=== PATIENT | male | born 1960 | race African-American/Black ===

== ENCOUNTER 2019-03-16 08:58 | Emergency (ER) | payer OTHER ==
[~2019-03-16 08:58] MED LIST: FLUO20CA19 PO; GLIP10TA13 PO; HYDR-2761 PO; LISI1TAB19 PO; ONDA4TAB10 SL; SAXA5TAB PO; SIMV80TA17 PO
[2019-03-16 10:40] LABS: BASO # 0.1 x10^3/uL (0.0-0.2); BASO % 1 % (0-3); EOS # 0.3 x10^3/uL (0.0-0.7); EOS % 4 % (0-3); HEMATOCRIT 49.5 % (39.0-53.0); HEMOGLOBIN 17.1 g/dL (13.0-17.5); LYMPH # 2.2 x10^3/uL (1.0-4.8); LYMPH % 26 % (24-48); MEAN CORPUSCULAR HEMOGLOBIN 31 pg (25-35); MEAN CORPUSCULAR HGB CONC 35 g/dL (31-37); MEAN CORPUSCULAR VOLUME 89 fL (79-100); MONO # 0.8 x10^3/uL (0.0-1.1); MONO % 9 % (0-9); NEUT # 5.2 x10^3/uL (1.8-7.7); NEUT % 60 % (31-73); PLATELET COUNT 181 x10^3/uL (140-400); RED BLOOD COUNT 5.58 x10^6/uL (4.30-5.70); RED CELL DISTRIBUTION WIDTH 13.1 % (11.5-14.5); WHITE BLOOD COUNT 8.7 x10^3/uL (4.0-11.0)
--- NOTE | 2019-03-16 10:47 | PHYS DOC ---
Past Medical History Past Medical History: Diabetes-Type II, High Cholesterol, Hypertension, Other Additional Past Medical Histor: G6PD DEFICIENCY (HUSSEIN COLLINS APRN) Past Surgical History: No Surgical History (HUSSEIN COLLINS APRN) Alcohol Use: None Drug Use: None (HUSSEIN COLLINS APRN) Adult General Chief Complaint Chief Complaint: ABDOMINAL PAIN HPI HPI Patient is a 58 year old male who presents with abdominal pain, nausea, vomiting this been ongoing for days. Patient rates pain 6 out of 10 severity sharp. The patient is not a bowel movement since Friday. The patient does have a history of a bowel obstruction. 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 He states this was several years ago. (HUSSEIN COLLINS APRN) Review of Systems Review of Systems Constitutional: Denies fever or chills [] Eyes: Denies change in visual acuity, redness, or eye pain [] HENT: Denies nasal congestion or sore throat [] Respiratory: Denies cough or shortness of breath [] Cardiovascular: No additional information not addressed in HPI [] GI: Reports abdominal pain, nausea, vomiting, Denies bloody stools or diarrhea [] : Denies dysuria or hematuria [] Musculoskeletal: Denies back pain or joint pain [] Integument: Denies rash or skin lesions [] Neurologic: Denies headache, focal weakness or sensory changes [] Endocrine: Denies polyuria or polydipsia [] Complete systems were reviewed and found to be within normal limits, except as documented in this note. (HUSSEIN COLLINS APRN) Current Medications Current Medications Current Medications Medications (Trade) Dose Ordered Sig/Travis Start Time Stop Time Status Last Admin Dose Admin Fentanyl Citrate (Fentanyl 2ml Vial) 50 mcg 1X ONCE 03/16/19 11:00 03/16/19 11:01 DC Info (CONTRAST GIVEN -- Rx MONITORING) 1 each PRN DAILY PRN 03/16/19 11:00 03/16/19 13:07 DC Iohexol (Omnipaque 300 Mg/ml) 75 ml 1X ONCE 03/16/19 11:00 03/16/19 11:01 DC 03/16/19 11:11 75 ML Ondansetron HCl (Zofran) 4 mg 1X ONCE 03/16/19 11:00 03/16/19 11:01 DC 03/16/19 11:10 4 MG Sodium Chloride 1,000 ml @ 1,000 mls/hr 1X ONCE 03/16/19 11:00 03/16/19 11:59 DC 03/16/19 11:10 1,000 MLS/HR (JAMILAH OH MD) Allergies Allergies Allergies Coded Allergies Type Severity Reaction Last Updated Verified aspirin Allergy Severe Anaphylaxis 03/16/19 Yes (JAMILAH OH MD) Physical Exam Physical Exam Constitutional: Well developed, well nourished, no acute distress, non-toxic appearance. [] HENT: Normocephalic, atraumatic, bilateral external ears normal, oropharynx moist, no oral exudates, nose normal. [] Eyes: PERRLA, EOMI, conjunctiva normal, no discharge. [] Neck: Normal range of motion, no tenderness, supple, no stridor. [] Cardiovascular:Heart rate regular rhythm, no murmur [] Lungs & Thorax: Bilateral breath sounds clear to auscultation [] Abdomen: Hypoactive bowel sounds, soft, diffuse tenderness with guarding in the LLQ, no masses, no pulsatile masses. [] Skin: Warm, dry, no erythema, no rash. [] Neurologic: Alert and oriented X 3, normal motor function, normal sensory function, no focal deficits noted. [] Psychologic: Affect normal, judgement normal, mood normal. [] (HUSSEIN COLLINS APRN) Current Patient Data Vital Signs Vital Signs Date Time Temp Pulse Resp B/P (MAP) Pulse Ox O2 Delivery O2 Flow Rate FiO2 03/16/19 12:30 72 12 115/72 (86) 97 Room Air 03/16/19 10:09 98.2 98.2 (JAMILAH OH MD) Lab Values Laboratory Tests Test 03/16/19 10:31 03/16/19 11:44 White Blood Count 8.7 x10^3/uL (4.0-11.0) Red Blood Count 5.58 x10^6/uL (4.30-5.70) Hemoglobin 17.1 g/dL (13.0-17.5) Hematocrit 49.5 % (39.0-53.0) Mean Corpuscular Volume 89 fL (79-100) Mean Corpuscular Hemoglobin 31 pg (25-35) Mean Corpuscular Hemoglobin Concent 35 g/dL (31-37) Red Cell Distribution Width 13.1 % (11.5-14.5) Platelet Count 181 x10^3/uL (140-400) Neutrophils (%) (Auto) 60 % (31-73) Lymphocytes (%) (Auto) 26 % (24-48) Monocytes (%) (Auto) 9 % (0-9) Eosinophils (%) (Auto) 4 % (0-3) H Basophils (%) (Auto) 1 % (0-3) Neutrophils # (Auto) 5.2 x10^3/uL (1.8-7.7) Lymphocytes # (Auto) 2.2 x10^3/uL (1.0-4.8) Monocytes # (Auto) 0.8 x10^3/uL (0.0-1.1) Eosinophils # (Auto) 0.3 x10^3/uL (0.0-0.7) Basophils # (Auto) 0.1 x10^3/uL (0.0-0.2) Prothrombin Time 13.7 SEC (11.7-14.0) Prothrombin Time INR 1.1 (0.8-1.1) Activated Partial Thromboplast Time 27 SEC (24-38) Sodium Level 134 mmol/L (136-145) L Potassium Level 3.7 mmol/L (3.5-5.1) Chloride Level 96 mmol/L (98-107) L Carbon Dioxide Level 26 mmol/L (21-32) Anion Gap 12 (6-14) Blood Urea Nitrogen 13 mg/dL (8-26) Creatinine 1.1 mg/dL (0.7-1.3) Estimated GFR (Cockcroft-Gault) 82.9 BUN/Creatinine Ratio 12 (6-20) Glucose Level 240 mg/dL (70-99) H Lactic Acid Level 1.6 mmol/L (0.4-2.0) Calcium Level 9.2 mg/dL (8.5-10.1) Total Bilirubin 0.8 mg/dL (0.2-1.0) Aspartate Amino Transferase (AST) 42 U/L (15-37) H Alanine Aminotransferase (ALT) 72 U/L (16-63) H Alkaline Phosphatase 71 U/L (46-116) Total Protein 7.6 g/dL (6.4-8.2) Albumin 4.1 g/dL (3.4-5.0) Albumin/Globulin Ratio 1.2 (1.0-1.7) Lipase 110 U/L (73-393) Urine Collection Type Unknown Urine Color Yellow Urine Clarity Clear Urine pH 5.0 Urine Specific [place] >=1.030 Urine Protein Negative mg/dL (NEG-TRACE) Urine Glucose (UA) 500 mg/dL (NEG) Urine Ketones (Stick) 15 mg/dL (NEG) Urine Blood Negative (NEG) Urine Nitrite Negative (NEG) Urine Bilirubin Negative (NEG) Urine Urobilinogen Dipstick 1.0 mg/dL (0.2 mg/dL) Urine Leukocyte Esterase Negative (NEG) Urine RBC Occ /HPF (0-2) Urine WBC Occ /HPF (0-4) Urine Squamous Epithelial Cells Few /LPF Urine Bacteria 0 /HPF (0-FEW) Urine Mucus Slight /LPF Laboratory Tests 03/16/19 10:31 Laboratory Tests 03/16/19 10:31 (JAMILAH OH MD) Lab Values Laboratory Tests Test 03/16/19 10:31 03/16/19 11:44 White Blood Count 8.7 x10^3/uL (4.0-11.0) Red Blood Count 5.58 x10^6/uL (4.30-5.70) Hemoglobin 17.1 g/dL (13.0-17.5) Hematocrit 49.5 % (39.0-53.0) Mean Corpuscular Volume 89 fL (79-100) Mean Corpuscular Hemoglobin 31 pg (25-35) Mean Corpuscular Hemoglobin Concent 35 g/dL (31-37) Red Cell Distribution Width 13.1 % (11.5-14.5) Platelet Count 181 x10^3/uL (140-400) Neutrophils (%) (Auto) 60 % (31-73) Lymphocytes (%) (Auto) 26 % (24-48) Monocytes (%) (Auto) 9 % (0-9) Eosinophils (%) (Auto) 4 % (0-3) H Basophils (%) (Auto) 1 % (0-3) Neutrophils # (Auto) 5.2 x10^3/uL (1.8-7.7) Lymphocytes # (Auto) 2.2 x10^3/uL (1.0-4.8) Monocytes # (Auto) 0.8 x10^3/uL (0.0-1.1) Eosinophils # (Auto) 0.3 x10^3/uL (0.0-0.7) Basophils # (Auto) 0.1 x10^3/uL (0.0-0.2) Prothrombin Time 13.7 SEC (11.7-14.0) Prothrombin Time INR 1.1 (0.8-1.1) Activated Partial Thromboplast Time 27 SEC (24-38) Sodium Level 134 mmol/L (136-145) L Potassium Level 3.7 mmol/L (3.5-5.1) Chloride Level 96 mmol/L (98-107) L Carbon Dioxide Level 26 mmol/L (21-32) Anion Gap 12 (6-14) Blood Urea Nitrogen 13 mg/dL (8-26) Creatinine 1.1 mg/dL (0.7-1.3) Estimated GFR (Cockcroft-Gault) 82.9 BUN/Creatinine Ratio 12 (6-20) Glucose Level 240 mg/dL (70-99) H Lactic Acid Level 1.6 mmol/L (0.4-2.0) Calcium Level 9.2 mg/dL (8.5-10.1) Total Bilirubin 0.8 mg/dL (0.2-1.0) Aspartate Amino Transferase (AST) 42 U/L (15-37) H Alanine Aminotransferase (ALT) 72 U/L (16-63) H Alkaline Phosphatase 71 U/L (46-116) Total Protein 7.6 g/dL (6.4-8.2) Albumin 4.1 g/dL (3.4-5.0) Albumin/Globulin Ratio 1.2 (1.0-1.7) Lipase 110 U/L (73-393) Urine Collection Type Unknown Urine Color Yellow Urine Clarity Clear Urine pH 5.0 Urine Specific [place] >=1.030 Urine Protein Negative mg/dL (NEG-TRACE) Urine Glucose (UA) 500 mg/dL (NEG) Urine Ketones (Stick) 15 mg/dL (NEG) Urine Blood Negative (NEG) Urine Nitrite Negative (NEG) Urine Bilirubin Negative (NEG) Urine Urobilinogen Dipstick 1.0 mg/dL (0.2 mg/dL) Urine Leukocyte Esterase Negative (NEG) Urine RBC Occ /HPF (0-2) Urine WBC Occ /HPF (0-4) Urine Squamous Epithelial Cells Few /LPF Urine Bacteria 0 /HPF (0-FEW) Urine Mucus Slight /LPF Laboratory Tests 03/16/19 10:31 Laboratory Tests 03/16/19 10:31 (HUSSEIN COLLINS APRN) EKG EKG [] (HUSSEIN COLLINS APRN) Radiology/Procedures Radiology/Procedures [][facility] [address] [place] [address] IMAGING REPORT Signed PATIENT: LYNDSEY AMBROCIO ACCOUNT: [id number] : 1960 LOCATION: ER AGE: 58 SEX: M EXAM STATUS: REG ER ORD. PHYSICIAN: HUSSEIN COLLINS APRN REASON: LLQ abdominal pain PROCEDURE: CT ABD PELV W/ IV CONTRST ONLY CT ABD PELV W/ IV CONTRST ONLY Indication: Left lower quadrant abdominal pain for 4 days. History of right renal tumor with resection. Exposure: One or more of the following individualized dose reduction techniques were utilized for this examination: 1. Automated exposure control 2. Adjustment of the mA and/or kV according to patient size 3. Use of iterative reconstruction technique. Technique: Intravenous contrast was given. No oral contrast per request. Comparison: 01/20/2016. FINDINGS: Minimal gynecomastia, partially seen. Lung bases appear clear. Liver again appears hypodense compatible with steatosis. No focal lesion. Spleen unremarkable. Pancreas appears unremarkable. No evidence of adrenal mass. Kidneys demonstrate symmetric enhancement. Previously seen mass at the lower pole the right kidney has been resected. Mild volume loss at the lower pole presumably due to resection. There is a small area of hypoattenuation adjacent to the inferior margin, coronal series 4, image 39, may be postsurgical but a small area of recurrent tumor is difficult to exclude. This measures 12 mm. Therefore, recommend further workup, such as with MRI or short-term follow-up multiphase CT scan. No evidence of hydronephrosis. No calcified gallstone. Aorta is mildly calcified, no evidence of aneurysm. No evidence of significant pathologic lymph node enlargement. Small hiatal hernia. No significant small bowel distention. No evidence of acute colitis. The appendix appears normal. No evidence of pneumoperitoneum or ascites. Prostate gland is mildly enlarged. The prostate indents the posteroinferior urinary bladder and these structures are difficult to separate. Vertebral body height and alignment are intact. Mild degenerative changes at the hips, more so on the right, are again seen. No evidence of aggressive bone destruction. Degenerative changes at the sacroiliac joints are again seen. Focal area of ill-defined lucency at the posterior right iliac bone is again seen, and stable, likely demineralization or old biopsy site. IMPRESSION: 1. Resection of previously seen inferior pole right renal mass. There is a small low-density focus at the residual lower pole, may be related to the surgery, but it is not possible to exclude some recurrent tumor. Therefore, recommend follow-up with outpatient MRI or multiphase CT of the kidneys 2. Prostatomegaly. 3. No evidence of acute intra-abdominal process. 4. Findings and recommendations were discussed with nurse Savage in the emergency room by telephone at 11:50 AM on 03/16/2019. Electronically signed by: Hussein Weiss MD (03/16/2019 11:51 AM) [id number] DICTATED and SIGNED BY: HUSSEIN WEISS MD DATE: 03/16/19 1151 (HUSSEIN COLLINS APRN) Course & Med Decision Making Course & Med Decision Making Pertinent Labs and Imaging studies reviewed. (See chart for details) Will get CT, Labs, UA, and give supportive care. Labs are unremarkable. CT is unremarkable for acute changes. Area of concern with cancer history will have follow up for outpatient care. Will put patient on magnesium citrate and miralax for constipation. (HUSSEIN COLLINS APRN) Course & Med Decision Making Staff Physician Addendum: I was working in the ER during the course of this patient's visit. I was available for consultation as needed, but I was not directly involved in the care of this patient. (JAMILAH OH MD) Dragon Disclaimer Dragon Disclaimer This electronic medical record was generated, in whole or in part, using a voice recognition dictation system. (HUSSEIN COLLINS APRN) Departure Departure Impression: Primary Impression: Abdominal pain Disposition: HOME, SELF-CARE Condition: STABLE Referrals: UNKNOWN PCP NAME (PCP) Patient Instructions: Abdominal Pain (Nonspecific) Additional Instructions: Thank you for visiting [facility]. We appreciate you trusting us with your care. If any additional problems come up don't hesitate to return to visit us. Please follow up with your primary care provider so they can plan additional care if needed and know about the problem that you had. If symptoms worsen come back to the Emergency Department. Any concerning symptoms that start such as chest pain, shortness of air, weakness or numbness on one side of the body, running high fevers or any other concerning symptoms return to the ER. Please follow-up your primary care regarding the abnormality that we talked about in your CT scan. Scripts Ondansetron (ONDANSETRON ODT) 4 Mg Tab.rapdis 1 TAB PO PRN Q6-8HRS PRN for NAUSEA, #16 TAB Prov: HUSSEIN COLLINS APRN 03/16/19 Magnesium Citrate (MAGNESIUM CITRATE) 296 Ml Solution 296 ML PO ONCE, #296 ML Prov: HUSSEIN COLLINS APRN 03/16/19 Polyethylene Glycol 3350 (MIRALAX) 17 Gm Powd.pack 1 PACKET PO DAILY for constipation, #30 PACKET 0 Refills dissolve in water Prov: HUSSEIN COLLINS APRN 03/16/19 HUSSEIN COLLINS APRN Mar 16, 2019 10:47 JAMILAH OH MD Mar 17, 2019 07:42
[2019-03-16 10:53] LABS: PROTHROMBIN TIME PATIENT 13.7 SEC (11.7-14.0)
[2019-03-16] MEDS ORDERED: ONDANSETRON PF 4 MG/2 ML VIAL. IV ONE (11:00)
[2019-03-16] MEDS ORDERED: IOHEXOL 300 MG/ML 100ML VIAL. IV ONE (11:00)
[2019-03-16] MEDS ORDERED: fentaNYL PF VIAL 100 MCG/2 ML VIAL IV ONE (11:00)
[2019-03-16] MEDS ORDERED: IV NORMAL SALINE 1000ML BAG 1,000 ML IV ONE (11:00)
[2019-03-16] MEDS ORDERED: CONTRAST GIVEN. MC PRN (11:00)
[2019-03-16 11:03] LABS: ALBUMIN 4.1 g/dL (3.4-5.0); ALBUMIN/GLOBULIN RATIO 1.2 (1.0-1.7); CALCIUM 9.2 mg/dL (8.5-10.1); CREATININE 1.1 mg/dL (0.7-1.3); GFR 82.9; POTASSIUM 3.7 mmol/L (3.5-5.1); TOTAL BILIRUBIN 0.8 mg/dL (0.2-1.0); TOTAL PROTEIN 7.6 g/dL (6.4-8.2)
--- NOTE | 2019-03-16 11:54 | RAD ---
CT ABD PELV W/ IV CONTRST ONLY Indication: Left lower quadrant abdominal pain for 4 days. History of right renal tumor with resection. Exposure: One or more of the following individualized dose reduction techniques were utilized for this examination: 1. Automated exposure control 2. Adjustment of the mA and/or kV according to patient size 3. Use of iterative reconstruction technique. Technique: Intravenous contrast was given. No oral contrast per request. Comparison: 01/20/2016. FINDINGS: Minimal gynecomastia, partially seen. Lung bases appear clear. Liver again appears hypodense compatible with steatosis. No focal lesion. Spleen unremarkable. Pancreas appears unremarkable. No evidence of adrenal mass. Kidneys demonstrate symmetric enhancement. Previously seen mass at the lower pole the right kidney has been resected. Mild volume loss at the lower pole presumably due to resection. There is a small area of hypoattenuation adjacent to the inferior margin, coronal series 4, image 39, may be postsurgical but a small area of recurrent tumor is difficult to exclude. This measures 12 mm. Therefore, recommend further workup, such as with MRI or short-term follow-up multiphase CT scan. No evidence of hydronephrosis. No calcified gallstone. Aorta is mildly calcified, no evidence of aneurysm. No evidence of significant pathologic lymph node enlargement. Small hiatal hernia. No significant small bowel distention. No evidence of acute colitis. The appendix appears normal. No evidence of pneumoperitoneum or ascites. Prostate gland is mildly enlarged. The prostate indents the posteroinferior urinary bladder and these structures are difficult to separate. Vertebral body height and alignment are intact. Mild degenerative changes at the hips, more so on the right, are again seen. No evidence of aggressive bone destruction. Degenerative changes at the sacroiliac joints are again seen. Focal area of ill-defined lucency at the posterior right iliac bone is again seen, and stable, likely demineralization or old biopsy site. IMPRESSION: 1. Resection of previously seen inferior pole right renal mass. There is a small low-density focus at the residual lower pole, may be related to the surgery, but it is not possible to exclude some recurrent tumor. Therefore, recommend follow-up with outpatient MRI or multiphase CT of the kidneys 2. Prostatomegaly. 3. No evidence of acute intra-abdominal process. 4. Findings and recommendations were discussed with nurse Savage in the emergency room by telephone at 11:50 AM on 03/16/2019. Electronically signed by: Hussein Weiss MD (03/16/2019 11:51 AM) [id number]
[2019-03-16 12:05] LABS: BILIRUBIN,URINE NEGATIVE (NEG); CLARITY,URINE CLEAR; COLOR,URINE YELLOW; NITRITE,URINE NEGATIVE (NEG); PROTEIN,URINE NEGATIVE (NEG-TRACE)
[2019-03-16 12:16] LABS: SQUAMOUS EPITHELIAL CELL,UR FEW /LPF
[2019-03-16 12:17] LABS: BACTERIA,URINE 0 /HPF (0-FEW); RBC,URINE OCC /HPF (0-2); WBC,URINE OCC /HPF (0-4)
[2019-03-16 12:30] VITALS: BP 115/72
[2019-03-16] MEDS ORDERED: MAGN296S68 PO (12:45)
[2019-03-16] MEDS ORDERED: POLY17PO29 PO (12:45)
[2019-03-16] MEDS ORDERED: ONDA4TAB12 PO (12:50)
== END 2019-03-16 13:07 | disposition home or self-care (01) ==
LOC: ER 08:58
DX: R10.32 Left lower quadrant pain (principal); R10.84 Generalized abdominal pain; R11.2 Nausea with vomiting, unspecified; E78.00 Pure hypercholesterolemia, unspecified; E11.9 Type 2 diabetes mellitus without complications; I10 Essential (primary) hypertension; Z88.6 Allergy status to analgesic agent
CPT/HCPCS: 36415; 74177; 80053; 81001; 83605; 83690; 85025; 85610; 85730; 96361; 96374; 99285; J2405; J7030; Q9967

== ENCOUNTER 2021-02-03 17:10 | Emergency (ER) | payer OTHER ==
[~2021-02-03] VITALS: Ht 167.6 cm; Wt 97.0 kg
[~2021-02-03 17:10] MED LIST changes: -FLUO20CA19 PO; +FLUO20CA22 PO; -LISI1TAB19 PO; +LISI1TAB37 PO; +MAGN296S68 PO; +ONDA4TAB12 PO; +POLY17PO29 PO
[2021-02-03] MEDS ORDERED: DEXAMETHASONE SOD PHOS 20 MG/5 ML VIAL. IV ONE (19:00)
[2021-02-03] MEDS ORDERED: IV NORMAL SALINE 1000ML BAG 1,000 ML IV SCH (19:00)
[2021-02-03] MEDS ORDERED: PROCHLORPERAZINE 10 MG/2 ML VIAL. IV ONE (19:00)
[2021-02-03] MEDS ORDERED: ACETAMINOPHEN 325 MG TABLET. PO ONE (19:00)
[2021-02-03 19:13] LABS: BILIRUBIN,URINE NEGATIVE (NEG); CLARITY,URINE CLEAR; COLOR,URINE YELLOW; NITRITE,URINE NEGATIVE (NEG); PH,URINE 7.5 (<5.0-8.0); PROTEIN,URINE NEGATIVE (NEG-TRACE)
[2021-02-03 19:21] LABS: BACTERIA,URINE 0 /HPF (0-FEW); RBC,URINE 0 /HPF (0-2)
[2021-02-03 19:46] LABS: BASO # 0.1 x10^3/uL (0.0-0.2); BASO % 1 % (0-3); EOS # 0.1 x10^3/uL (0.0-0.7); EOS % 1 % (0-3); HEMATOCRIT 43.1 % (39.0-53.0); HEMOGLOBIN 14.6 g/dL (13.0-17.5); LYMPH # 1.5 x10^3/uL (1.0-4.8); LYMPH % 8 % (24-48); MEAN CORPUSCULAR HEMOGLOBIN 31 pg (25-35); MEAN CORPUSCULAR HGB CONC 34 g/dL (31-37); MEAN CORPUSCULAR VOLUME 91 fL (79-100); MONO # 1.5 x10^3/uL (0.0-1.1); MONO % 9 % (0-9); NEUT # 14.8 x10^3/uL (1.8-7.7); NEUT % 82 % (31-73); PLATELET COUNT 163 x10^3/uL (140-400); RED BLOOD COUNT 4.73 x10^6/uL (4.30-5.70); RED CELL DISTRIBUTION WIDTH 13.4 % (11.5-14.5); WHITE BLOOD COUNT 18.2 x10^3/uL (4.0-11.0)
--- NOTE | 2021-02-03 19:52 | PHYS DOC ---
Past Medical History Past Medical History: Diabetes-Type II, High Cholesterol, Hypertension, Other Additional Past Medical Histor: G6PD DEFICIENCY, KIDNEY CANCER, CHRONIC R SHOULDER PAIN Past Surgical History: No Surgical History Smoking Status: Never Smoker Alcohol Use: None Drug Use: None General Adult EDM: Chief Complaint: NECK PAIN HPI: HPI: 60-year-old male past medical history of insulin-dependent diabetes, G6PD deficiency, hypertension, hyperlipidemia and history of renal cancer in remission (never required chemo or radiation) presents the ED with complaints of "neck pain in the back, headache and eyes hurting when I open them," stating his sugar was elevated to 91 today. States neck pain is an extension of his headache-is located posteriorly and around both eyes. Also reports associated tingling in the feet, fatigue, fever and nausea, feeling as if he needs to vomit. Reports he has been vaccinated for Covid. Is not an IV drug user or daily alcohol drinker. States "I've never had a headache this bad." Denies any recent upper respiratory infection or sinusitis. Review of Systems: Review of Systems: Constitutional: Denies lethargy or confusion Eyes: Denies eye discharge or blurry vision HENT: Denies nasal congestion or sore throat. [] Respiratory: Denies cough or shortness of breath. [] Cardiovascular: Denies chest pain or edema. [] GI: Denies abdominal pain, vomiting, bloody stools or diarrhea. [] : Denies hematuria or flank pain Musculoskeletal: Denies back pain or joint pain. [] Integument: Denies rash or diaphoresis Neurologic: Denies focal weakness or sensory changes. [] Endocrine: Denies polyuria or polydipsia. [] Lymphatic: Denies swollen glands. [] Psychiatric: Denies depression or anxiety. [] Heart Score: C/O Chest Pain: No Risk Factors: Risk Factors: DM, Current or recent (<one month) smoker, HTN, HLP, family history of CAD, obesity. Risk Scores: Score 0 - 3: 2.5% MACE over next 6 weeks - Discharge Home Score 4 - 6: 20.3% MACE over next 6 weeks - Admit for Clinical Observation Score 7 - 10: 72.7% MACE over next 6 weeks - Early Invasive Strategies Current Medications: Current Medications Medications (Trade) Dose Ordered Sig/Travis Start Time Stop Time Status Last Admin Dose Admin Acetaminophen (Tylenol) 650 mg 1X ONCE 02/03/21 19:00 02/03/21 19:02 DC Dexamethasone Sodium Phosphate (Decadron) 10 mg 1X ONCE 02/03/21 19:00 02/03/21 19:02 DC Prochlorperazine Edisylate (Compazine) 10 mg 1X ONCE 02/03/21 19:00 02/03/21 19:02 DC Sodium Chloride 1,000 ml @ 1,000 mls/hr Q1H 02/03/21 19:00 02/03/21 19:59 Allergies: Allergies: Allergies Coded Allergies Type Severity Reaction Last Updated Verified aspirin Allergy Severe Anaphylaxis 03/16/19 Yes Physical Exam: PE: Constitutional: Well developed, well nourished, no acute distress, non-toxic appearance. HENT: Normocephalic, atraumatic, Eyes: PERRLA, EOMI, conjunctiva normal, no discharge. Neck: appears stiff due to minimal voluntary movement but is able to touch his chin to his chest, negative jolt test, supple, no jvd, Cardiovascular: S1/2 present, regular rhythm Lungs & Thorax: Speaking in full sentences, bilateral equal chest rise, no tachypnea or increased work of breathing Abdomen: soft, no tenderness, Skin: Warm, dry, no erythema, no rash. [] Back: No tenderness, no CVA tenderness. [] Extremities: No tenderness, no cyanosis, no lower extremity edema Neurologic: CN2-12 intact, Alert and oriented X 3, normal motor function, normal sensory function, no focal deficits noted, no brudzinskis sign or kernigs sign Psychologic: Affect normal, judgement normal, mood normal. [] Current Patient Data: Labs: Laboratory Tests Test 02/03/21 18:43 02/03/21 18:55 Urine Collection Type Unknown Urine Color Yellow Urine Clarity Clear Urine pH 7.5 (<5.0-8.0) Urine Specific Desha 1.020 (1.000-1.030) Urine Protein Negative mg/dL (NEG-TRACE) Urine Glucose (UA) 100 mg/dL (NEG) Urine Ketones (Stick) Negative mg/dL (NEG) Urine Blood Negative (NEG) Urine Nitrite Negative (NEG) Urine Bilirubin Negative (NEG) Urine Urobilinogen Dipstick 1.0 mg/dL (0.2 mg/dL) Urine Leukocyte Esterase Trace (NEG) Urine RBC 0 /HPF (0-2) Urine WBC 5-10 /HPF (0-4) Urine Bacteria 0 /HPF (0-FEW) Glucose (Fingerstick) 183 mg/dL (70-99) H Vital Signs: Vital Signs Date Time Temp Pulse Resp B/P (MAP) Pulse Ox O2 Delivery O2 Flow Rate FiO2 02/03/21 18:40 100.3 101 16 128/71 (90) 98 Room Air 100.3 EKG: EKG: sinus tachycardia, NAD, normal intervals, no TWI, no EBEN or STD Radiology/Procedures: Radiology/Procedures: []IMAGING REPORT Signed PATIENT: LYNDSEY AMBROCIO ACCOUNT: [id number] : 1960 LOCATION: ER AGE: 60 SEX: M EXAM STATUS: REG ER ORD. PHYSICIAN: AZAM SCHMID DO REASON: fever PROCEDURE: PORTABLE CHEST 1V Exam: Chest one view INDICATION: Fever TECHNIQUE: Frontal view of the chest Comparisons: None FINDINGS: The cardiomediastinal silhouette and pulmonary vessels are within normal limits. The lung and pleural spaces are clear. IMPRESSION: No acute cardiopulmonary process. Electronically signed by: Michel Tomas MD (02/03/2021 7:52 PM) [facility] DICTATED and SIGNED BY: MICHEL TOMAS MD DATE: 02/03/21 [id number] IMAGING REPORT Signed PATIENT: LYNDSEY AMBROCIO ACCOUNT: [id number] : 1960 LOCATION: ER AGE: 60 SEX: M EXAM STATUS: REG ER ORD. PHYSICIAN: AZAM SCHMID DO REASON: fever PROCEDURE: CT HEAD WO CONTRAST Exam: CT head. CTA head and neck INDICATION: Fever TECHNIQUE: Sequential axial images through the head were obtained without the administration of IV contrast. Sequential axial images through the head and neck were obtained following the administration of 75 mL of Omni 300 3-D reformatted images were reconstructed from the axial data and reviewed. Exposure: One or more of the following in the visualized dose reduction techniques were utilized for this examination: 1. Automated exposure control 2. Adjustment of the MA and/or KV according to patient size 3. Use of iterative of reconstructive technique Comparisons: None FINDINGS: Head: No focal parenchymal lesion or hemorrhage is identified. There is no midline shift or sulcal effacement. No acute vascular territory infarction is identified. Nash-white distinction is preserved. The ventricular system is within normal limits without compression hydrocephalus. The basal cisterns are well maintained. The visualized portions of the paranasal sinuses and mastoid air cells are well- pneumatized. No acute fractures. CTA neck: Visualized portions of thoracic aorta are unremarkable. Two-vessel aortic arch configuration with common origin of the brachycephalic and left common carotid artery. Right common carotid artery is patent without evidence of stenosis, occlusion or aneurysm. Cervical segment of the right internal carotid artery is patent without evidence of stenosis, occlusion or aneurysm. Left common carotid artery is patent without evidence of stenosis, occlusion or aneurysm. Minimal plaque at the origin of the left internal carotid artery without significant stenosis. Right vertebral artery is patent to the basilar confluence without evidence of stenosis, occlusion or aneurysm. Left vertebral artery is patent to basilar confluence without evidence of stenosis, occlusion or aneurysm. Visualized paraspinal soft tissues are unremarkable. CTA HEAD: Minimal calcified plaque cavernous segment of the right internal carotid artery without significant stenosis. Right MCA is patent. Right SHERYL is patent. Minimal calcified plaque at the cavernous segment of the left internal carotid artery without significant stenosis. Left MCA is patent. Left SHERYL is patent. Basilar artery is patent without evidence of stenosis, occlusion or aneurysm. television operator are patent bilaterally. Visualized portions of the dural venous sinuses are patent. IMPRESSION: 1. No acute intracranial abnormality. 2. Minimal plaque at the origin of the left internal carotid artery without significant stenosis. 3. Minimal calcified plaque at the cavernous segments of the internal carotid arteries bilaterally without significant stenosis. Electronically signed by: Michel Tomas MD (02/03/2021 8:43 PM) [facility] DICTATED and SIGNED BY: MICHEL TOMAS MD DATE: 02/03/[id number] 0 Course & Med Decision Making: Course & Med Decision Making Pertinent Labs and Imaging studies reviewed. (See chart for details) Upon reevaluation patient states he has been in the ED for too long and is requesting to be discharged home. Is upset that his has been sitting outside in the waiting room, waiting on him (pt educated on hospital covid policies). Pt aware he has a fever of unknown origin in the setting of fro ntal/occipital headache and posterior neck pain. Patient has no neurologic deficits and mild neck stiffness although has a negative jolt test, no brudzinskis sign or kernigs sign. I explained my concern for an early meningitis presentation given his leukocytosis and neck stiffness and that I suspect pt is saying his symptoms are improved so that he can go home. I was attempting to obtain consent for lumbar puncture (twice) and patient adamantly refused stating his headache is almost gone and that he wants to go home. I am unable to convince the patient to have a lumbar puncture or to stay in the hospital for LP results. I informed him I recommended he stay and be admitted overnight. Pt asks "can I go to my primary doctor for this? I've been waiting too long." I explained that he was in the waiting room for an hour and his workup has been around 3 hours -fairly normal given labs and imaging turn around time. Pt shakes his head back and forth from the left to the right and states his headache and neck pain are almost gone. I am unable to convince patient to stay in the emergency department, wait for his discharge instructions and p rescribed antibiotics -pt would not consent for me talking to his . I did encourage patient to return to the ED immediately to continue his work-up. Strict ED return precautions were given for confusion, lethargy, worsening fever or neurologic deficits including sensory or motor deficits. The patient has decided to leave our facility against medical advice. I have assessed patient's ability to make informed decision and feel the patient has the capacity to comprehend information regarding the current medical condition and appreciates the impact of the disease or condition and the consequences of various options for treatment, including foregoing treatment. The patient possesses the ability to evaluate all treatment options, comparing the risks and benefits of each option, communicate his or her choice in a consistent manner over time, and is able to make rational choices. I explained to the patient further testing, treatment, and evaluation I would like to perform in the emergency department visit as well as any possible alternatives that can be accomplished in a timely manner. I have outlined the possible risks of foregoin g any or all of these interventions and the patient understands and acknowledges that the decision to leave may result in undesirable consequences such as , permanent disability, and/or loss of current lifestyle. Even though leaving AMA is not ideal, I have instructed the patient to follow any discharge instructions given, take any medications prescribed, and resume care as soon as possible with another provider. This conversation was witnessed by another member of the emergency department staff and we clearly communicated the patient is welcome to return anytime to continue care at our facility. Dragon Disclaimer: Dragon Disclaimer: This electronic medical record was generated, in whole or in part, using a voice recognition dictation system. Departure Departure Impression: Primary Impression: Fever Additional Impressions: Headache Neck pain Left against medical advice Disposition: LEFT AGAINST MEDICAL ADVICE Condition: STABLE Referrals: UNKNOWN PCP NAME (PCP) Follow-up with your primary care physician in 24 to 48 hours OR FOLLOW UP WITH FAMILY MEDICINE: [address] [place] [address] Patient Instructions: Bacterial Meningitis, Discharge Against Medical Advice, Fever of Unknown Origin, Fever, Adult, Viral Meningitis Additional Instructions: EMERGENCY DEPARTMENT GENERAL DISCHARGE INSTRUCTIONS Thank you for coming to [facility] Emergency Department (ED) today and trusting us with you care. We trust that you had a positive experience in our Emergency Department. If you wish to speak to the department management, you may call the Director at [phone]. YOUR FOLLOW UP INSTRUCTIONS ARE FOLLOWS: 1. Do you have a private Doctor? If you do not have a private doctor, please ask for a resource list of physicians or clinics that may be able to assist you with follow up care. 2. The Emergency Physicain has interpreted your x-rays. The X-Ray specialist will also review them. If there is a change in the findings, you will be notified in 48 hours when at all possible. 3. A lab test or culture has been done, your results will be reviewed and you will be notified if you need a change in treatment. ADDITIONAL INSTRUCTIONS AND INFORMATION: 1. Your care today has been supervised by a physician who is specially trained in emergency care. Many problems require more than one evaluation for a complete diagnosis and treatment. We recommend that you schedule your follow up appointment as recommended to ensure complete treatment of you illness or injury. If you are unable to obtain follow up care and continue to have a problem, or if your condition worsens, we recommend that you return to the ED. 2. We are not able to safely determine your condition over the phone nor are we able to give sound medical advice over the phone. For these safety reasons, if you call for medical advice we will ask you to come to the ED for further evaluation. 3. If you have any questions regarding these discharge instructions please call the ED at [phone]. SAFETY INFORMATION: In the interest of safety, wellness, and injury prevention; we encourage you to wear your sealbelt, if you smoke; quite smoking, and we encourage family to use a protective helmet for bicycling and other sporting events that present an increased risk for head injury. IF YOUR SYMPTOMS WORSEN OR NEW SYMPTOMS DEVELOP, OR YOU HAVE CONCERNS ABOUT YOUR CONDITION; OR IF YOUR CONDITION WORSENS WHILE YOU ARE WAITING FOR YOUR FOLLOW UP APPOINTMENT; EITHER CONTACT YOUR PRIMARY CARE DOCTOR, THE PHYSICIAN WHOSE NAME AND NUMBER YOU WERE GIVEN, OR RETURN TO THE ED IMMEDIATELY. Scripts Cefpodoxime Proxetil (CEFPODOXIME PROXETIL) 200 Mg Tablet 1 TAB PO BID for 10 Days, #20 TAB Prov: AZAM SCHMID DO 02/03/21 AZAM SCHMID DO Feb 03, 2021 19:52
[2021-02-03 19:56] LABS: CALCIUM 9.3 mg/dL (8.5-10.1); CREATININE 1.2 mg/dL (0.7-1.3); GFR 74.5; POTASSIUM 4.2 mmol/L (3.5-5.1)
[2021-02-03 20:02] LABS: ALBUMIN 4.1 g/dL (3.4-5.0); DIRECT BILIRUBIN 0.2 mg/dL (0.0-0.2); TOTAL BILIRUBIN 0.7 mg/dL (0.2-1.0); TOTAL PROTEIN 7.4 g/dL (6.4-8.2)
[2021-02-03 20:11] LABS: MAGNESIUM 1.9 mg/dL (1.8-2.4)
[2021-02-03 20:13] LABS: % ATYL 1 % (0-0); % EOS 1 % (0-5); % LYMPHS 12 % (24-48); % MONOS 4 % (0-10); % SEGS 82 % (35-66)
[2021-02-03 20:14] LABS: PLT ESTIMATE ADEQUATE (ADEQUATE)
[2021-02-03] MEDS ORDERED: CONTRAST GIVEN. MC PRN (20:15)
[2021-02-03] MEDS ORDERED: IOHEXOL 300 MG/ML 100ML VIAL. IV ONE (20:15)
[2021-02-03 20:17] VITALS: BP 128/67
[2021-02-03 20:45] LABS: INFLUENZA A PATIENT NEGATIVE (NEGATIVE); INFLUENZA B PATIENT NEGATIVE (NEGATIVE)
--- NOTE | 2021-02-03 20:46 | RAD ---
Exam: CT head. CTA head and neck INDICATION: Fever TECHNIQUE: Sequential axial images through the head were obtained without the administration of IV co ntrast. Sequential axial images through the head and neck were obtained following the administration of 75 mL of Omni 300 3-D reformatted images were reconstructed from the axial data and reviewed. Exposure: One or more of the following in the visualized dose reduction techniques were utilized for this examination: 1. Automated exposure control 2. Adjustment of the MA and/or KV according to patient size 3. Use of iterative of reconstructive technique Comparisons: None FINDINGS: Head: No focal parenchymal lesion or hemorrhage is identified. There is no midline shift or sulcal effaceme nt. No acute vascular territory infarction is identified. Nash-white distinction is preserved. The ventricular system is within normal limits without compression hydrocephalus. The basal cisterns are well maintained. The visualized portions of the paranasal sinuses and mastoid air cells are well-pneumatized. No acute fractures. CTA neck: Visualized portions of thoracic aorta are unremarkable. Two-vessel aortic arch configuration with com mon origin of the brachycephalic and left common carotid artery. Right common carotid artery is patent without evidence of stenosis, occlusion or aneurysm. Cervical s egment of the right internal carotid artery is patent without evidence of stenosis, occlusion or aneu rysm. Left common carotid artery is patent without evidence of stenosis, occlusion or aneurysm. Minimal linh que at the origin of the left internal carotid artery without significant stenosis. Right vertebral artery is patent to the basilar confluence without evidence of stenosis, occlusion or aneurysm. Left vertebral artery is patent to basilar confluence without evidence of stenosis, occlusion or aneu rysm. Visualized paraspinal soft tissues are unremarkable. CTA HEAD: Minimal calcified plaque cavernous segment of the right internal carotid artery without significant s tenosis. Right MCA is patent. Right SHERYL is patent. Minimal calcified plaque at the cavernous segment of the left internal carotid artery without signifi cant stenosis. Left MCA is patent. Left SHERYL is patent. Basilar artery is patent without evidence of stenosis, occlusion or aneurysm. product analyst are patent bilater ally. Visualized portions of the dural venous sinuses are patent. IMPRESSION: 1. No acute intracranial abnormality. 2. Minimal plaque at the origin of the left internal carotid artery without significant stenosis. 3. Minimal calcified plaque at the cavernous segments of the internal carotid arteries bilaterally w ithout significant stenosis. Electronically signed by: Michel Johnson MD (02/03/2021 8:43 PM) [facility]
[2021-02-03] MEDS ORDERED: VANCOMYCIN PER PHARMACY MC PRN (21:30)
[2021-02-03] MEDS ORDERED: CEFP200T PO (21:41)
[2021-02-03] MEDS ORDERED: IV NORMAL SALINE 1000ML BAG 1,000 ML IV ONE (22:00)
[2021-02-03] MEDS ORDERED: VANCOMYCIN 2 GM in IV NORMAL SALINE 500ML BAG 500 ML IV ONE (22:00)
[2021-02-03] MEDS ORDERED: cefTRIAXone IV Push 1 GM VIAL. IVP ONE (22:00)
--- NOTE | 2021-02-04 00:09 | EKG ---
[facility] [address] [place] [address] Test Date: 2021-02-03 Test Time: 18:40:21 Pat Name: LYNDSEY AMBROCIO Department: Room: Gender: M Call Center Analyst: : 1960 Requested By: AZAM SCHMID Order Number: [id number] Reading MD: Tesfaye Munoz MD Measurements Intervals [place] Rate: 101 P: 23 ME: 138 QRS: 24 QRSD: 68 T: 14 QT: 300 QTc: 395 Interpretive Statements SINUS TACHYCARDIA NON-SPECIFIC ST/T CHANGES Electronically Signed On 02-04-2021 20:26:03 CARGO TRIMMER by Tesfaye Munoz MD
--- NOTE | 2021-02-05 12:30 | NUR ---
IP: Informed pt of negative covid test. Pt verbalized understanding.
== END 2021-02-03 21:28 | disposition left against medical advice (07) ==
LOC: ER 17:10
DX: R50.9 Fever, unspecified (principal); R51.9 Headache, unspecified; M54.2 Cervicalgia; Z20.822 Contact with and (suspected) exposure to COVID-19; E11.9 Type 2 diabetes mellitus without complications; E78.00 Pure hypercholesterolemia, unspecified; I10 Essential (primary) hypertension; Z88.6 Allergy status to analgesic agent
CPT/HCPCS: 36415; 70450; 70496; 70498; 71045; 80048; 80076; 81001; 82010; 82962; 83605; 83690; 83735; 85007; 85025; 85610; 85730; 87040; 87086; 87426; 87804; 93005; 96361; 96374; 96375; 99285; J0780; J1100; J7030; Q9967; U0003; U0005